=== PATIENT | female | born 2000 | race African-American/Black ===

== ENCOUNTER 2024-03-22 21:10 | Inpatient (IN) | payer OTHER ==
[2024-03-22 21:41] LABS: BASO % 0.4 % (0-2.0); EOS % 0.4 % (0-4.5); HEMATOCRIT 33.9 % (32.4-45.2); HEMOGLOBIN 11.1 GM/dL (10.7-15.3); LYMPH % 24.6 % (8-40); MCHC 32.6 g/dl (32.0-36.0); MEAN CELL VOLUME 85.8 fl (80-96); MEAN PLT VOLUME 9.2 fl (7.5-11.1); MONO % 3.9 % (3.8-10.2); NEUT % 70.7 % (42.8-82.8); PLATELET COUNT 171 10^3/uL (134-434); RBC 3.95 M/mm3 (3.60-5.2); WHITE BLOOD COUNT 7.2 K/mm3 (4.0-10.0)
[2024-03-22 21:44] LABS: INR 0.89 (0.83-1.09); PROTHROMBIN TIME (PATIENT) 10.1 SEC (9.7-13.0)
[2024-03-22 21:47] LABS: ACTIVATED PTT 27.9 SECONDS (25.2-36.5)
[2024-03-22] MEDS: DEXTROSE 5%-LACTATED RINGERS 1,000 ML IV SCH (21:50)
[2024-03-22] MEDS: SODIUM CHLORIDE 500 ML IV STA (22:03)
[2024-03-22 22:14] LABS: CHLORIDE 108 mmol/L (98-107); POTASSIUM 3.5 mmol/L (3.5-5.1); SODIUM 139 mmol/L (136-145)
[2024-03-22 22:15] LABS: ANION GAP 12 mmol/L (4-13); BLOOD UREA NITROGEN 4.2 mg/dL (7-18); CALCIUM 8.9 mg/dL (8.5-10.1); CO2 20 mmol/L (21-32); GLUCOSE,RANDOM 99 mg/dL (74-106)
[2024-03-22 22:19] LABS: CREATININE 0.7 mg/dL (0.55-1.3)
[2024-03-22 22:34] VITALS: BMI 25.0
[2024-03-22] MEDS: MISOPROSTOL 100 MCG TABLET PV SCH (23:10)
[2024-03-23] MEDS ORDERED: morphine SULFATE 4 MG/ML VIAL ONE ×2 (06:41→11:18)
[2024-03-23] MEDS: morphine CARPU-JECT 8 MG/1 ML DISP.SYRIN IVPB ONE (06:50)
[2024-03-23] MEDS: SODIUM CHLORIDE 500 ML IV STA ×2 (10:30→17:20)
[2024-03-23] MEDS: morphine SULFATE 4 MG/ML VIAL IVPB ONE ×2 (11:25→11:38)
[2024-03-23] MEDS ORDERED: OXYTOCIN 30 UNITS in 0.9% NS 30 UNIT/500 ML INFUS.BAG IVPB ONE (13:31)
[2024-03-23] MEDS: OXYTOCIN 30 UNITS in 0.9% NS 30 UNIT/500 ML INFUS.BAG IVPB SCH (13:50)
[2024-03-23] MEDS ORDERED: FENTANYL/BUPIVACAINE/NS/PF - PCEA - 50 ML DISP.SYRIN EP ONE (16:32)
[2024-03-23] MEDS: SODIUM CHLORIDE 1,000 ML IV STA (16:40)
[2024-03-23] MEDS: FENTANYL/BUPIVACAINE/NS/PF - PCEA - 50 ML DISP.SYRIN EP SCH (17:05)
[2024-03-23] MEDS ORDERED: NALOXONE HCL 0.4 MG/ML VIAL IVPUSH PRN (17:15)
[2024-03-23] MEDS ORDERED: OXYTOCIN 20 UNITS in 0.9% NS 20 UNIT/1,000 ML INFUS.BAG IV ONE (18:58)
[2024-03-23] MEDS ORDERED: LIDOCAINE HCL 1% PRESERVATIVE FREE - 30ML VIAL ONE (18:58)
[2024-03-23] MEDS: OXYTOCIN 20 UNITS in 0.9% NS 20 UNIT/1,000 ML INFUS.BAG IV SCH (20:23)
[2024-03-23] MEDS ORDERED: SODIUM CHLORIDE 500 ML IV STA (20:40)
[2024-03-23] MEDS ORDERED: BENZOCAINE 28 GM HEMORRHOIDAL OINTMENT TP PRN (20:41)
[2024-03-23] MEDS ORDERED: IBUPROFEN 600 MG TABLET (FP) PO PRN (20:41)
[2024-03-23] MEDS ORDERED: ACETAMINOPHEN 325 MG TABLET (FP) PO PRN (20:41)
[2024-03-23] MEDS ORDERED: WITCH HAZEL 50% (TUCKS) 40 PAD/JAR PAD TP PRN (20:41)
[2024-03-23 21:34] LABS: CORD BASE EXCESS -13.2 mmol/L (0-2); CORD HCO3 14.3 mmHg (20-29); CORD PCO2 38.5 mmHg (30-78); CORD pH 7.187 (7.14-7.44)
[2024-03-24 07:19] LABS: BASO % 0.2 % (0-2.0); HEMATOCRIT 25.8 % (32.4-45.2); HEMOGLOBIN 8.4 GM/dL (10.7-15.3); MCH 27.7 pg (25.7-33.7); MCHC 32.4 g/dl (32.0-36.0); MEAN CELL VOLUME 85.5 fl (80-96); MEAN PLT VOLUME 9.2 fl (7.5-11.1); MONO % 4.7 % (3.8-10.2); NEUT % 86.1 % (42.8-82.8); PLATELET COUNT 131 10^3/uL (134-434); RBC 3.02 M/mm3 (3.60-5.2); WHITE BLOOD COUNT 18.3 K/mm3 (4.0-10.0)
[2024-03-24 17:22] VITALS: RESP 18
[2024-03-24] MEDS: DOCUSATE SODIUM 100 MG CAPSULE (FP) PO SCH (21:38)
[2024-03-24] MEDS: FERROUS SO4 325 MG TABLET (FP) PO SCH (21:38)
[2024-03-25 10:09] VITALS: BP 136/82; PULSE 76; TEMP 97.6
== END 2024-03-25 12:10 | disposition home or self-care (01) | DRG 807 ==
LOC: JLDR 21:10 → J3W 03-23 22:41
PROVIDERS: ADMIT Obstetrics & Gynecology Maternal & Fetal Medicine; ATTEND Obstetrics & Gynecology Maternal & Fetal Medicine
PROC: 10E0XZZ Delivery of Products of Conception, External Approach (ICD-10-PCS; principal; 2024-03-23)
DX: O48.0 Post-term pregnancy (principal); Z37.0 Single live birth; Z3A.40 40 weeks gestation of pregnancy
CPT/HCPCS: 36415; 36600; 59409; 80048; 82803; 85025; 85610; 85730; 86780; 86850; 86900; 86901